=== PATIENT | female | born 1935 | race Caucasian/White ===

== ENCOUNTER 2019-11-24 11:42 | Emergency (ER) | payer MEDICARE, OTHER ==
[~2019-11-24] VITALS: Ht 160 cm; Wt 77.1 kg
[2019-11-24] MEDS ORDERED: ELIQUIS5 MG PO (12:55)
[2019-11-24] MEDS ORDERED: LEVOTHYROXINE100 MCG PO (12:56)
[2019-11-24] MEDS ORDERED: ALDACTONE25 MG PO (12:56)
[2019-11-24] MEDS ORDERED: BRIMONIDINE 0.110 ML OP (12:57)
[2019-11-24] MEDS ORDERED: LATANOPROST2.5 ML OPTH (12:57)
[2019-11-24] MEDS ORDERED: ENTRESTO 49 MG1 EACH PO (12:58)
[2019-11-24] MEDS ORDERED: ALLOPURINOL300 MG PO (12:59)
[2019-11-24] MEDS ORDERED: CLOPIDOGREL75 MG PO (12:59)
[2019-11-24] MEDS ORDERED: LIPITOR40 MG PO (12:59)
[2019-11-24] MEDS ORDERED: PANTOPRAZOLE SO40 MG PO (12:59)
[2019-11-24] MEDS ORDERED: PACERONE200 MG PO (13:00)
[2019-11-24] MEDS ORDERED: TOPROL XL50 MG PO (13:00)
--- NOTE | 2019-11-24 19:44 | EKG ---
[facility] [address] [facility] [place] [address] Signed Normal sinus rhythm Left axis deviation Left ventricular hypertrophy with QRS widening and repolarization abnormality Possible Lateral infarct , age undetermined Abnormal ECG No previous ECGs available Confirmed by KATRIN INFANTE MD ([id number] on 11/24/2019 7:44:26 PM Electronically Signed By: KATRIN INFANTE MD 11/24/19 1944 PATIENT NAME: MARKO EVANGELISTA Electrocardiogram DATE OF : 37 PHYSICIAN: KATRIN INFANTE MD REPORT #: [id number] REPORT IS CONFIDENTIAL AND NOT TO BE RELEASED WITHOUT AUTHORIZATION
== END 2019-11-24 14:33 | disposition home or self-care (01) ==
LOC: ED 11:42
DX: R55 Syncope and collapse (principal); E78.5 Hyperlipidemia, unspecified; I10 Essential (primary) hypertension; Z79.899 Other long term (current) drug therapy
CPT/HCPCS: 80053; 81001; 83735; 84484; 85025; 93005; 93010; 99284-25